=== PATIENT | male | born 1995 | race Caucasian/White ===

== ENCOUNTER 2022-05-16 07:07 | Emergency (ER) | payer MEDICAID ==
[~2022-05-16] VITALS: Ht 182.9 cm; Wt 77.3 kg
[~2022-05-16 07:07] MED LIST: NO HOME MEDS
[2022-05-16 08:32] VITALS: BP 114/77
== END 2022-05-16 08:33 | disposition home or self-care (01) ==
LOC: ER 07:08
DX: J06.9 Acute upper respiratory infection, unspecified (principal); Z20.822 Contact with and (suspected) exposure to COVID-19; Z79.899 Other long term (current) drug therapy
CPT/HCPCS: 87502; 87503; 87811; 99283